=== PATIENT | female | born 1985 | race Hispanic/Latino ===

== ENCOUNTER 2017-10-16 19:46 | Emergency (ER) | payer BC, MEDICAID, OTHER ==
[2017-10-16 19:47] VITALS: BMI 50.1
[2017-10-16 20:10] VITALS: TEMP 97.9
[2017-10-16] MEDS ORDERED: Sodium Chloride 0.9% 1,000 ML IV STA (20:46)
--- NOTE | 2017-10-16 20:48 | ED PDOC ---
HPI: Abdomen Time Seen by Provider: 10/16/17 20:30 Chief Complaint (Nursing): Abdominal Pain Chief Complaint (Provider): lower abdominal pain History Per: Patient History/Exam Limitations: no limitations Onset/Duration Of Symptoms: Days (4), Waxing/Waning Current Symptoms Are (Timing): Still Present Location Of Pain/Discomfort: RLQ, LLQ, Suprapubic Associated Symptoms: Nausea, Vomiting Additional Complaint(s): 32 y/o female history of bilateral ovarian cysts (3 past surgeries) presents with lower abdominal pain x 4 days, worsening x 2 hours. Patient states she was seen at [facility] yesterday and had a CT scan and pelvic u/s which shared bilateral large ovarian cysts; patient followed up with her Embossing Machine Operator today and will be scheduled for another surgery for cyst removal; patient was advised to come to ED if pain worsens. Patient states pain now more persistent, with associated nausea/vomiting x 2. Denies fever, chest pain, shortness of breath, palpitations, changes in bowel movements, urinary symptoms. Past Medical History Reviewed: Historical Data, Nursing Documentation, Vital Signs Vital Signs: Last Vital Signs Temp 97.9 F 10/16/17 20:06 Pulse 64 10/16/17 20:06 Resp 18 10/16/17 20:06 BP 135/88 10/16/17 20:06 Pulse Ox 100 10/16/17 23:22 - Medical History PMH: Anxiety (PANIC ATTACKS), Hypothyroidism, Migraine (once a month /10 pain) Denies: Chronic Kidney Disease - Surgical History Surgical History: Cholecystectomy (2002), Endoscopy Other surgeries: ovarian cystectomy - Family History Family History: States: No Known Family Hx - Home Medications Home Medications: Ambulatory Orders Medication Instructions Recorded Omeprazole Magnesium [Prilosec Otc] 20 mg PO DAILY 08/06/14 oxyCODONE/Acetaminophen [Percocet 1 ea PO Q4 PRN #20 tab 08/12/14 5/325 mg Tab] oxyCODONE/Acetaminophen [Percocet 1 ea PO Q6 PRN #12 tab 10/17/17 5/325 mg Tab] - Allergies Allergies/Adverse Reactions: Allergies Allergy/AdvReac Type Severity Reaction Status Date / Time No Known Allergies Allergy Verified 05/16/14 08:26 Review of Systems ROS Statement: Except As Marked, All Systems Reviewed And Found Negative Genitourinary Female: Positive for: Pelvic Pain Physical Exam - Reviewed Nursing Documentation Reviewed: Yes Vital Signs Reviewed: Yes - Physical Exam Appears: Positive for: Well, Non-toxic, Uncomfortable Head Exam: Positive for: ATRAUMATIC, NORMAL INSPECTION, NORMOCEPHALIC Skin: Positive for: Normal Color Eye Exam: Positive for: Normal appearance ENT: Positive for: Normal ENT Inspection Cardiovascular/Chest: Positive for: Regular Rate, Rhythm Respiratory: Positive for: Normal Breath Sounds Gastrointestinal/Abdominal: Positive for: Tenderness (diffuse discomfort palpation lower abdomen). Negative for: Distended, Guarding, Rebound Back: Positive for: Normal Inspection Extremity: Positive for: Normal ROM Neurologic/Psych: Positive for: Alert, Oriented - Laboratory Results Result Diagrams: 10/16/17 21:03 10/16/17 21:03 - ECG O2 Sat by Pulse Oximetry: 100 - Progress ED Course And Treament: labs, urine, u/s, IV morphine EXAM: US Pelvis Complete, Transabdominal US Pelvis, Transvaginal CLINICAL HISTORY: 32 years old, female; Pain; Pelvic pain; Additional info: Pelvic pain, h/o cysts TECHNIQUE: Real-time transabdominal and transvaginal pelvic ultrasound (complete) with image documentation. Transvaginal imaging was used for better evaluation of the endometrium and adnexa. COMPARISON: No relevant prior studies available. FINDINGS: Uterus/cervix: Retroverted uterus. Uterus measures 6.4 x 4.5 x 5.1 cm in size. No myometrial mass. Endometrium: 1.0 cm in thickness. Right ovary: 5.1 x 3.8 x 4.4 cm in size. 4.2 x 4.3 x 3.4 cm hypoechoic lesion with mild internal echoes. Normal flow. Left ovary: 2.7 x 1.9 x 3.3 cm in size. No mass. Normal flow. Other findings: 6.3 x 4.5 x 4.0 cm anechoic lesion LEFT adnexal region. Free fluid: No significant free fluid. Bladder: Unremarkable as visualized. IMPRESSION: 1. Probable complex/hemorrhagic RIGHT ovarian cyst. Recommend sonographic followup in six weeks to evaluate for resolution and exclude other etiologies. 2. Probable LEFT parovarian cyst. Suggest followup to ensure stability/ resolution. Case discussed with Dr. Hernandez, patient's Winch Truck Operator; states if pain improved can follow up outpatient to finalize scheduling surgery, otherwise recommends calling house W[employer] Truck Operator for consult if pain persists Case discussed with Dr. Kinsey, Winch Truck Operator on-call; agrees with plan to d/c if feeling better, to c/b if no improvement of pain 00:45 Patient resting comfortably; states pain improved. Tolerating PO Patient educated on findings, discharged with rx Percocet Advised to follow up Embossing Machine Operator tomorrow Return precautions given. Disposition - Clinical Impression Clinical Impression: Bilateral ovarian cysts Counseled Patient/Family Regarding: Studies Performed, Diagnosis, Need For Followup, Rx Given - Disposition Disposition: Routine/Home Disposition Time: 00:54 Condition: IMPROVED Prescriptions: oxyCODONE/Acetaminophen [Percocet 5/325 mg Tab] 1 ea PO Q6 PRN #12 tab PRN Reason: Pain, Severe (8-10) Instructions: Ovarian Cysts Forms: [employer] (Bengali), [facility] ED School/Work Excuse
[2017-10-16 21:14] LABS: BASO # 0.1 K/uL (0.0-0.2); BASO % 1.1 % (0.0-2.0); EOS # 0.3 K/uL (0.0-0.7); EOS % 2.3 % (0.0-4.0); HEMOGLOBIN 12.2 g/dL (12.0-16.0); LYMPH # 1.5 K/uL (1.0-4.3); LYMPH % 13.3 % (20.0-40.0); MEAN CELL VOLUME 83.3 fl (81.0-99.0); MEAN CORPUSCULAR HEMOGLOBIN 28.5 pg (27.0-31.0); MEAN CORPUSCULAR HGB CONC 34.2 g/dL (33.0-37.0); MEAN PLATELET VOLUME 9.5 fl (7.2-11.7); MONO # 0.6 K/uL (0.0-0.8); MONO % 5.3 % (0.0-10.0); NEUT # 8.7 K/uL (1.8-7.0); RBC 4.28 Mil/uL (3.80-5.20); RED CELL DISTRIBUTION WIDTH 14.5 % (11.5-14.5); WHITE BLOOD COUNT 11.1 K/uL (4.8-10.8)
[2017-10-16 21:25] LABS: INR 1.1 (0.9-1.2); PARTIAL THROMBOPLASTIN TIME 30.3 Seconds (25.6-37.1); PROTHROMBIN TIME 12.4 Seconds (9.8-13.1)
[2017-10-16 21:40] LABS: ALB/GLOB RATIO 1.2 (1.0-2.1); ALBUMIN 4.2 g/dL (3.5-5.0); ALT/SGPT 32 U/L (9-52); AST/SGOT 41 U/L (14-36); BLOOD UREA NITROGEN 11 mg/dl (7-17); CALCIUM 9.1 mg/dL (8.4-10.2); GFR AFRICAN-AMERICAN > 60; GFR NON-AFRICAN AMERICAN > 60
--- NOTE | 2017-10-16 23:01 | US ---
EXAM: US Pelvis Complete, Transabdominal US Pelvis, Transvaginal CLINICAL HISTORY: 32 years old, female; Pain; Pelvic pain; Additional info: Pelvic pain, h/o cysts TECHNIQUE: Real-time transabdominal and transvaginal pelvic ultrasound (complete) with image documentation. Transvaginal imaging was used for better evaluation of the endometrium and adnexa. COMPARISON: No relevant prior studies available. FINDINGS: Uterus/cervix: Retroverted uterus. Uterus measures 6.4 x 4.5 x 5.1 cm in size. No myometrial mass. Endometrium: 1.0 cm in thickness. Right ovary: 5.1 x 3.8 x 4.4 cm in size. 4.2 x 4.3 x 3.4 cm hypoechoic lesion with mild internal echoes. Normal flow. Left ovary: 2.7 x 1.9 x 3.3 cm in size. No mass. Normal flow. Other findings: 6.3 x 4.5 x 4.0 cm anechoic lesion LEFT adnexal region. Free fluid: No significant free fluid. Bladder: Unremarkable as visualized. IMPRESSION: 1. Probable complex/hemorrhagic RIGHT ovarian cyst. Recommend sonographic followup in six weeks to evaluate for resolution and exclude other etiologies. 2. Probable LEFT parovarian cyst. Suggest followup to ensure stability/resolution.
[2017-10-17 01:07] VITALS: BP 112/64; PULSE 63; RESP 16; O2SAT 97
== END 2017-10-17 01:03 | disposition home or self-care (01) ==
LOC: H.ER 19:46
DX: N83.202 Unspecified ovarian cyst, left side (principal); N83.201 Unspecified ovarian cyst, right side; E03.9 Hypothyroidism, unspecified
CPT/HCPCS: 76830; 80053; 81025; 85025; 85610; 85730; 96360; 99284; J2270; J7040